=== PATIENT | female | born 1950 | race Caucasian/White ===

== ENCOUNTER → 2023-04-09 10:50 | Outpatient (REF) | payer MEDICARE, BC, SELFPAY ==
--- NOTE | 2023-04-09 11:02 | CA_ITS ---
Transthoracic Echocardiogram Patient (Last, First, Middle): Blanca Valenzuela, Gender: Female Date of : 1950 Age: 72 Procedure Date: 04/09/2023 Procedure Type: Transthoracic Echocardiogram Location: [facility] Height: 162.56 cm Weight: 56.7 kg BSA: 1.60 m2 Heart Rate: 70 bpm BP: 128 / 70 mmHg Anode Adjuster: SB Referring MD: Blanca Melissa NP Symptoms: RIDLEY R06.00 Study Quality: Adequate ECG Rhythm: Sinus Conclusions: - The left ventricular systolic function is normal. The calculated ejection fraction is 62% by biplane method. - No obvious valvular pathology seen on this study. Findings Left Ventricle Normal left ventricular cavity size. The left ventricular systolic function is normal. The calculated ejection fraction is 62% by biplane method. There is no evidence of regional wall motion abnormalities. Diastolic function is normal for age. There is mild septal asymmetric hypertrophy. LV peak GLS 15% (slightly reduced). Right Ventricle Normal right ventricular cavity size and systolic function. Atria Both atria are normal in size. Aortic Valve There is a normal trileaflet aortic valve. There is mild calcification of the aortic valve. There is no aortic valve stenosis. There is no aortic valve regurgitation. Mitral Valve The mitral valve appears normal. There is trace mitral valve regurgitation. There is no mitral valve stenosis. Pulmonic Valve There is mild pulmonic valve regurgitation. Tricuspid Valve Normal tricuspid valve structure. There is mild tricuspid valve regurgitation. There is no evidence of pulmonary hypertension. Great Vessels The asc aorta is normal in size. Venous The inferior vena cava is normal in size and collapses greater than 50% with inspiration. Pericardium/Pleural There is no evidence of pericardial effusion. Prior Study Comparison No significant change compared to prior study dated: 01/30/2021. (prior study at [facility]) Recommendations, Care & Conclusions No obvious valvular pathology seen on this study. Measurements 2D Linear Measurements IVSd: 1.07 0.6-0.9/0.6-1.0 cm LVIDd: 3.91 3.9-5.3/4.2-5.9 cm LVIDd Index: 2.44 2.4-3.2/2.2-3.1 cm/m2 LVIDs: 2.51 2.0-3.6 cm LVPWd: 0.75 0.7-1.1 cm LA Diam: 3.70 2.7-3.8/3.0-4.0 cm LAIDs Index: 2.31 1.5-2.3 cm/m2 LV Mass: 133.29 67-162/88-224 g LV Mass Index: 83.30 43-95/49-115 g/m2 LVOT Diam: 2.00 3.0+(-)1.3 cm 2D Systolic Function EF 4C: 59.60 >55% EF 2C: 64.00 >55% EF BiP: 61.80 >55% Mitral Valve MV Pk E: 0.45 MV PK A: 0.51 MV Decel Time: 218.00 E/A: 0.90 E'Lateral: 7.51 E'Medial: 5.33 E/E' Med: 8.50 E/E' Lat: 6.00 PHT: 64.00 MVA PHT: 3.44 Decel Mills: 2.08 Aortic Valve AoV Pk Anthony: 1.02 AoV Pk Grad: 4.00 RUIZ: 2.79 LVOT LVOT Pk Anthony: 0.91 LVOT Mn Anthony: 0.56 LVOT VTI: 0.19 LVOT Pk Grad: 3.00 LVOT Mn Grad: 1.00 LVOT Diam: 2.00 LVOT Area: 3.14 Diastolic Function MV Pk E: 0.45 MV Pk A: 0.51 E/A: 0.90 E'Medial: 5.33 E/E' Med: 8.50 E' Laterial: 7.51 E/E' Lat: 6.00 Right Ventricle TAPSE (mm): 20.40 TVS' Anthony: 18.50 Tricuspid Valve TR Pk Anthony: 2.25 TR Pk Grad: 20.00 RA Press: 3.00 RVSP: 23.00 Great Vessels Aorta Sinus of Valsalva: 3.30 2.0-3.5 cm Ao Asc: 3.30 2.1-3.4 cm Pulmonary Veins Pulm Vein S/D 1.70 Pulmonary Valve PV Pk Anthony: 0.87 Peak PV Grad: 3.00 Shunting QP:QS: 1.20 Updated in Other Vendor System with Status of Final Freddy Montenegro MD electronically signed on 04/09/2023 3:34:58 PM with status of Final
== END ==
LOC: HO.CARD 10:50
PROVIDERS: PCP Nurse Practitioner Adult Health; Visit Provider Nurse Practitioner Adult Health
DX: R06.00 Dyspnea, unspecified (principal)
CPT/HCPCS: 93306; 93356